=== PATIENT | male | born 1970 | race Caucasian/White ===

== ENCOUNTER 2020-08-19 02:57 | Inpatient (IN) | payer MEDICAID ==
[~2020-08-19] VITALS: Ht 180.3 cm; Wt 92.6 kg
[2020-08-19] MEDS ORDERED: SODIUM CHLORIDE 0.9% 1,000 ML IV ONE ×3 (03:15→07:30)
[2020-08-19] MEDS ORDERED: ONDANSETRON HCL 4 MG/2 ML VIAL IV ONE (03:15)
[2020-08-19] MEDS ORDERED: MORPHINE SULFATE 4 MG/ML SYR/VIAL IV ONE (03:15)
[2020-08-19 03:59] LABS: Basophils # (auto) 0.1 10 ^3/uL (0-0.2); Basophils % (auto) 0.6 % (0.0-2.0); Eosinophils # (auto) 0.3 10 ^3/uL (0-0.8); Eosinophils % (auto) 2.2 % (0.0-7.0); Hematocrit 42.3 % (41.0-53.0); Hemoglobin 15.1 g/dL (13.5-17.5); Lymphocytes # (auto) 1.9 10 ^3/uL (0.4-5.4); Lymphocytes % (auto) 16.3 % (10.0-50.0); Mean Corpuscular Hemoglobin 30.8 pg (28.0-32.0); Mean Corpuscular Hgb Conc. 35.7 g/dL (32.0-36.0); Mean Corpuscular Volume 86.4 fL (80.0-100.0); Monocytes # (auto) 1.2 10 ^3/uL (0-1.3); Neutrophils # (auto) 8.4 10 ^3/uL (1.6-8.6); Neutrophils % (auto) 70.9 % (37.0-80.0); Nucleated Red Blood Cells % 0.1 %; Platelet Count (auto) 229 10^3/uL (140-450); Red Blood Cells 4.89 10^6/uL (4.5-5.90); Red Cell Distribution Width 14.2 % (11.8-14.3); White Blood Cell 11.8 10^3/uL (4.4-10.8)
[2020-08-19 04:18] LABS: Albumin 3.7 g/dL (3.4-5.0); Calcium 8.7 mg/dL (8.5-10.1); Potassium 3.9 mmol/L (3.5-5.1)
[2020-08-19 04:21] LABS: BUN/Creatinine Ratio 12.5
[2020-08-19 04:22] LABS: Bilirubin, Total 0.5 mg/dL (0.2-1.0); Total Protein 7.6 g/dL (6.4-8.2)
[2020-08-19 05:38] LABS: Urine Bacteria FEW /hpf (None Seen); Urine Blood 2+ /uL (Negative); Urine Mucus FEW (None Seen); Urine Specific Gravity 1.012 (1.001-1.035); Urine WBC 1 /hpf (0 - 3)
[2020-08-19] MEDS ORDERED: TAMSULOSIN HYDROCHLORIDE 0.4 MG CAP PO ONE (07:30)
[2020-08-19] MEDS ORDERED: cefTRIAXone 1GM/50ML D5W 50 ML IV ONE (07:30)
[2020-08-19] MEDS ORDERED: KETOROLAC TROMETH 30 MG/ML 1ML VIAL IV ONE (07:30)
[2020-08-19] MEDS ORDERED: ONDANSETRON HCL 4 MG/2 ML VIAL IV PRN (08:45)
[2020-08-19] MEDS ORDERED: NITROGLYCERIN 0.4 MG SL TAB SL PRN (08:45)
[2020-08-19] MEDS ORDERED: MORPHINE SULF INJ 2 MG/ML SYRINGE 1ML IV PRN ×2 (08:45)
[2020-08-19] MEDS ORDERED: ACETAMINOPHEN 500 MG TAB PO PRN (08:45)
[2020-08-19] MEDS: SODIUM CHLORIDE 0.9% 1,000 ML IV SCH ×2 (09:37→16:45)
[2020-08-19] MEDS: FAMOTIDINE 20 MG TAB PO SCH (09:37)
[2020-08-19] MEDS ORDERED: ASCO500T11 PO (10:30)
--- NOTE | 2020-08-19 15:20 | NUR ---
PATIENT ARRIVED TO UNIT RECEIVED REPORT FROM ER NURSE PATIENT ALERT AND ORIENTED X4 PATIENT ORIENTED TO UNIT STAFF, POC AND CALL LIGHT PATIENT VERBALIZED UNDERSTANDING. PATIENT DENIES ALL PAIN AT THIS TIME. BED IN LOWEST LOCKED POSITION CALL LIGHT WITHIN REACH WILL CONTINUE TO MONITOR
[2020-08-19 15:56] VITALS: BP 133/85
[2020-08-19 16:36] VITALS: BP 134/90
--- NOTE | 2020-08-19 18:00 | NUR ---
CALLED ADMITTING X2 REGARDING PATIENT WRIST BAND IS TOO TIGHT AWAITING WRIST BAND
[2020-08-19] MEDS: TAMSULOSIN HYDROCHLORIDE 0.4 MG CAP PO SCH (18:14)
[2020-08-19] MEDS: HYDROcodone-ACET 5/325MG TAB PO PRN (18:15)
--- NOTE | 2020-08-19 19:05 | NUR ---
OPENING NOTE- NOC SHIFT PATIENT IS ALERT AND ORIENTED X4. PATIENT IS SITTING UP IN BED WATCHING TELEVISION. NO S/SX OF DISTRESS OR SOB. BED IS LOCKED AT LOWEST POSITION, BED RAILS UP X2. DISCUSSED POC WITH PATIENT AND INSTRUCTED PATIENT TO CALL PRN; PATIENT VERBALIZED UNDERSTANDING. WILL CONTINUE TO MONITOR Q1H AND PRN.
[2020-08-19 20:00] VITALS: BP 119/88
[2020-08-19 22:00] VITALS: BP 129/88
[2020-08-20] VITALS (7 sets, daily range): BP systolic 119–152; BP diastolic 76–103
[2020-08-20] MEDS: HYDROcodone-ACET 5/325MG TAB PO PRN (00:08)
[2020-08-20] MEDS: SODIUM CHLORIDE 0.9% 1,000 ML IV SCH ×3 (00:44→18:15)
[2020-08-20 05:48] LABS: Basophils # (auto) 0.1 10 ^3/uL (0-0.2); Basophils % (auto) 0.8 % (0.0-2.0); Eosinophils # (auto) 0.3 10 ^3/uL (0-0.8); Eosinophils % (auto) 3.2 % (0.0-7.0); Hematocrit 37.2 % (41.0-53.0); Lymphocytes # (auto) 1.9 10 ^3/uL (0.4-5.4); Lymphocytes % (auto) 23.6 % (10.0-50.0); Mean Corpuscular Hemoglobin 30.4 pg (28.0-32.0); Mean Corpuscular Hgb Conc. 34.9 g/dL (32.0-36.0); Mean Corpuscular Volume 86.9 fL (80.0-100.0); Monocytes % (auto) 12.1 % (0.0-12.0); Neutrophils # (auto) 4.9 10 ^3/uL (1.6-8.6); Neutrophils % (auto) 60.3 % (37.0-80.0); Nucleated Red Blood Cells % 0.1 %; Platelet Count (auto) 194 10^3/uL (140-450); Red Blood Cells 4.28 10^6/uL (4.5-5.90); Red Cell Distribution Width 14.4 % (11.8-14.3); White Blood Cell 8.1 10^3/uL (4.4-10.8)
[2020-08-20 06:10] LABS: BUN/Creatinine Ratio 11.9; Calcium 8.3 mg/dL (8.5-10.1); Potassium 4.4 mmol/L (3.5-5.1)
[2020-08-20] MEDS: FAMOTIDINE 20 MG TAB PO SCH (09:31)
[2020-08-20] MEDS: cefTRIAXone 1GM/50ML D5W 50 ML IV SCH (09:34)
[2020-08-20] MEDS ORDERED: MANNITOL FTV 25% 12.5 GM/50 ML 50 ML IV ONE (12:30)
[2020-08-20] MEDS: TAMSULOSIN HYDROCHLORIDE 0.4 MG CAP PO SCH (18:00)
--- NOTE | 2020-08-20 18:51 | NUR ---
closing shift note Patient is comfortably resting in bed. No s/s of sob/distress noted/stated. Bed at lowest locked position and call light within reach. Will endorse care to NOC RN.
--- NOTE | 2020-08-20 19:05 | NUR ---
ASSUMED PATIENT CARE- NOC SHIFT PATIENT IS ALERT AND ORIENTED X4. NO S/SX OF DISTRESS, SOB OR PAIN. DISCUSSED POC WITH PATIENT AND INSTRUCTED PATIENT TO CALL PRN; PATIENT VERBALIZED UNDERSTANDING. WILL CONTINUE TO MONITOR Q1H AND PRN.
--- NOTE | 2020-08-21 | NUR ---
ROUNDS PATIENT IS RESTING EYES CLOSED, BREATHING EVENLY. NO S/SX OF DISTRESS, SOB OR PAIN. WILL CONTINUE TO MONITOR Q1H AND PRN.
[2020-08-21] MEDS: SODIUM CHLORIDE 0.9% 1,000 ML IV SCH ×2 (01:40→08:45)
[2020-08-21 05:00] VITALS: BP 141/95
[2020-08-21 06:59] LABS: Basophils # (auto) 0.1 10 ^3/uL (0-0.2); Basophils % (auto) 1.3 % (0.0-2.0); Eosinophils # (auto) 0.4 10 ^3/uL (0-0.8); Eosinophils % (auto) 5.1 % (0.0-7.0); Hematocrit 40.9 % (41.0-53.0); Hemoglobin 14.1 g/dL (13.5-17.5); Lymphocytes % (auto) 27.9 % (10.0-50.0); Mean Corpuscular Hgb Conc. 34.6 g/dL (32.0-36.0); Mean Corpuscular Volume 86.7 fL (80.0-100.0); Monocytes # (auto) 0.8 10 ^3/uL (0-1.3); Monocytes % (auto) 10.7 % (0.0-12.0); Neutrophils # (auto) 3.9 10 ^3/uL (1.6-8.6); Nucleated Red Blood Cells % 0.1 %; Platelet Count (auto) 220 10^3/uL (140-450); Red Blood Cells 4.71 10^6/uL (4.5-5.90); Red Cell Distribution Width 13.9 % (11.8-14.3); White Blood Cell 7.2 10^3/uL (4.4-10.8)
[2020-08-21 07:16] LABS: Albumin 3.4 g/dL (3.4-5.0); Calcium 8.8 mg/dL (8.5-10.1); Magnesium 2.4 mg/dL (1.6-2.6); Potassium 4.1 mmol/L (3.5-5.1)
[2020-08-21 07:22] LABS: BUN/Creatinine Ratio 12.8; Bilirubin, Total 0.5 mg/dL (0.2-1.0); Total Protein 7.3 g/dL (6.4-8.2)
--- NOTE | 2020-08-21 07:30 | NUR ---
CLOSING NOTE- NOC SHIFT ENDORSED PATIENT CARE TO DAY SHIFT NURSE TAYLOR MATIAS PATIENT IS COMFORTABLE IN BED. NO S/SX OF DISTRESS, SOB OR PAIN. NO CHANGE IN PATIENT STATUS DURING [facility]ER
[2020-08-21 07:50] VITALS: BP 141/97
[2020-08-21 08:00] VITALS: BP 141/97
--- NOTE | 2020-08-21 08:07 | NUR ---
Opening shift note Assumed care of patient, awake and alertx4. No S/S of distress/SOB. Patient states, he did not have a restful night.No c/o pain. Instructed on POC and to call for assist PRN.Bed at lowest locked position and call light within reach. Will continue to monitor for changes Q1hr and PRN.
[2020-08-21] MEDS: cefTRIAXone 1GM/50ML D5W 50 ML IV SCH (10:04)
[2020-08-21] MEDS: FAMOTIDINE 20 MG TAB PO SCH (10:05)
--- NOTE | 2020-08-21 11:27 | NUR ---
Dr. Rogers at bedside. Patient's BP is elevated, BP 148/110, per MD stop fluids reassess in 1 hr.
--- NOTE | 2020-08-21 11:57 | NUR ---
ANGEL OSORIO FROM UROLOGY, AWAITING CALL BACK. Addendum: 08/21/20 at 1219 by Zhane Raza RN per Martha REDD, patient may go home. Will notify Dr. Rogers.
[2020-08-21 12:00] VITALS: BP 126/91
--- NOTE | 2020-08-21 12:30 | NUR ---
Isaias Rogers for Discharge planning.
[2020-08-21 13:42] VITALS: BP 126/91
--- NOTE | 2020-08-21 15:20 | NUR ---
Discharge instructions given as ordered. Encourage to follow up with PMD as instructed. All questions and concerns addressed. Patient verbalized understanding. Medication reconciliation form completed and copy given to patient. IV removed with catheter intact, pressure dressing applied. Patient ambulated with all personal belongings, accompanied by this nurse. No distress noted at time of departure.
== END 2020-08-21 15:50 | disposition home or self-care (01) | DRG 465 ==
LOC: ER 02:59 → OVERFLOW 03:00 → WEST WING 14:58
PROVIDERS: ADMIT Nurse Practitioner Acute Care; ATTEND Internal Medicine
DX: N13.2 Hydronephrosis with renal and ureteral calculous obstruction (principal); R65.10 Systemic inflammatory response syndrome (SIRS) of non-infectious origin without acute organ dysfunction; N17.9 Acute kidney failure, unspecified; R73.03 Prediabetes; E86.0 Dehydration; E66.9 Obesity, unspecified; Z71.6 Tobacco abuse counseling; Z88.2 Allergy status to sulfonamides; Z68.29 Body mass index [BMI] 29.0-29.9, adult; R16.0 Hepatomegaly, not elsewhere classified
CPT/HCPCS: 36415; 74018; 74176; 80048; 80053; 80061; 81001; 83036; 83735; 85025; 87086; 96361; 96365; 96375; G0378; J0696; J1885; J2405